=== PATIENT | female | born 1955 | race Caucasian/White ===

== ENCOUNTER 2016-11-18 23:09 | Observation (INO) | payer OTHER ==
--- NOTE | 2016-11-18 23:22 | EDPHY ---
H & P Stated Complaint: CP since 830pm, worse with breathing and exertion HPI/ROS: HPI CHIEF COMPLAINT: Chest pain, shortness of breath HISTORY OF PRESENT ILLNESS: This patient very pleasant 61-year-old female significant past medical history for epilepsy, presents to the emergency room with pain in her chest. She states that around 830 [address] was [address] and she suddenly developed pain in her chest that she describes a stricture. The pain is worse when she takes a deep breath in. Patient tells me that every time she takes deep breath in it hurts. She distally reports that she has a pressure sensation sitting on her chest. Denies nausea vomiting or diarrhea. Denies fever. Denies recent illness or cough. States her chest feels tight. Started abruptly at 8:30 p.m.. No history of cardiac or lung disease. She does report to me that the pain in her chest goes up to her neck. Bilaterally. Worse when she takes deep breath in. No trauma. Past Medical History: Epilepsy Past Surgical History: No recent surgery Social History: Denies daily use drugs alcohol tobacco products Family History: Family history consistent with coronary artery disease. ROS REVIEW OF SYSTEMS: A comprehensive 10 point review of systems is otherwise negative aside from elements mentioned in the history of present illness. Exam Constitutional appears well nontoxic, triage nursing summary reviewed, vital signs reviewed, awake/alert. Eyes normal conjunctivae and sclera, EOMI, PERRLA. HENT normal inspection, atraumatic, moist mucus membranes, no epistaxis, neck supple/ no meningismus, no raccoon eyes. Respiratory clear to auscultation bilaterally, normal breath sounds, no respiratory distress, no wheezing. Cardiovascular rate normal, regular rhythm, no murmur, no edema, distal pulses normal. Gastrointestinal soft, non-tender, no rebound, no guarding, normal bowel sounds, no distension, no pulsatile mass. Genitourinary no CVA tenderness. Musculoskeletal no midline vertebral tenderness, full range of motion, no calf swelling, no tenderness of extremities, no meningismus, good pulses, neurovascularly intact. Skin pink, warm, & dry, no rash, skin atraumatic. Neurologic awake, alert and oriented x 3, AAOx3, moves all 4 extremities equally, motor intact, sensory intact, CN II-XII intact, normal cerebellar, normal vision, normal speech. Psychiatric normal mood/affect. Heme/Lymph/Immune no lymphadenopathy. Differential diagnosis includes but is not limited to: ACS, atypical chest pain , pneumothorax, pneumonia, pulmonary embolism, aortic dissection, congestive heart failure, tumor, musculoskeletal pain, esophageal pain, GERD, peptic ulcer disease, pancreatitis Medical Decision Making: Plan for this patient full clinical research monitor, IV establishment, full-dose aspirin, nitroglycerin to see if this improves chest discomfort. EKG. Rule out acute coronary syndrome. Re-evaluation: EKG interpretation by me on record in [employer] system. Impression time of EKG 09/18/2028, sinus rhythm rate of 77, LVH present. Do not appreciate acute ischemia specifically no ST elevation. No old EKG to compare to. ED x-ray chest two view: Negative for acute cardiopulmonary disease. Image interpreted myself. I do not appreciate a pneumothorax subcutaneous air. 0127: Re-evaluation at this time. Patient resting comfortably. Chest x-ray, EKG, D-dimer, troponin negative. CT angiogram of the chest is still pending. CT scan of the angiogram chest. The results of the study are negative for pulmonary embolism, there is triple-vessel coronary artery disease. No aortic dissection. The study was read by Dr. Mcadams I viewed the images myself on the PACS system. 0154: I did speak with this patient and her about further evaluation of chest pain given that she has coronary artery disease on her CT scan and has typical anginal chest pain I will need admitted to the hospitalist for further evaluation. It is noted her EKG shows no acute ischemia. Negative troponin. Negative D-dimer. CT angiogram does not show PE but shows coronary artery disease. Patient agreeable for admission. Reason for patient admission is chest pain possible pleurisy. CT shows coronary artery disease. Patient has a positive family history. Patient's age. She is agreeable for admission updated her . Needs chest pain risk stratification. Need stress test echocardiogram. Here in the emergency room negative troponin, negative D-dimer, normal EKG. CT angiogram shows no PE. Does show coronary artery disease. No aortic dissection or aneurysm. Source: Patient - Personal History Current Tetanus/Diphtheria Vaccine: Unsure Current Tetanus Diphtheria and Acellular Pertussis (TDAP): Unsure - Medical/Surgical History Hx Asthma: No Hx Chronic Respiratory Disease: No Hx Diabetes: No Hx Cardiac Disease: No Hx Renal Disease: No Hx Cirrhosis: No Hx Alcoholism: No Hx HIV/AIDS: No Hx Splenectomy or Spleen Trauma: No Other PMH: HTN, epilepsy, high cholesterol - Social History Smoking Status: Never smoked Constitutional: Initial Vital Signs Temperature (C) 36.9 C 11/18/16 23:10 Heart Rate 80 11/18/16 23:10 Respiratory Rate 18 11/18/16 23:10 Blood Pressure 177/95 H 11/18/16 23:10 O2 Sat (%) 93 11/18/16 23:10 O2 Delivery Mode Nasal Cannula O2 (L/minute) 2 Allergies/Adverse Reactions: No Known Allergies Allergy (Unverified 11/18/16 23:13) Home Medications: Medication Instructions Recorded Atorvastatin Calcium [Lipitor 40 40 mg PO HS 11/19/16 mg (*)] Escitalopram Oxalate [Lexapro] 20 mg PO DAILY 11/19/16 lamoTRIgine [LamICTAL 100 MG (*)] 200 mg PO HS 11/19/16 lamoTRIgine [LamICTAL 100 MG (*)] 300 mg PO DAILY 11/19/16 levETIRAcetam [Keppra 500 mg (*)] 1,000 mg PO HS 11/19/16 levETIRAcetam [Keppra 500 mg (*)] 1,500 mg PO DAILY 11/19/16 Medical Decision Making - Data Points Laboratory Results: Laboratory Results 11/18/16 23:30 11/18/16 23:30 Medications Given: Discontinued Medications Aspirin (Aspirin) 324 mg PO EDNOW ONE Stop: 11/18/16 23:32 Last Admin: 11/19/16 00:17 Dose: Not Given Aspirin (Aspirin) 325 mg PO DAILY [facility] Stop: 05/18/17 08:59 Last Admin: 11/19/16 09:35 Dose: Not Given Atorvastatin Calcium (Lipitor) 40 mg PO DAILY [facility] Stop: 05/18/17 08:59 Last Admin: 11/19/16 09:41 Dose: Not Given Escitalopram Oxalate (Lexapro) 20 mg PO DAILY [facility] Stop: 05/18/17 08:59 Last Admin: 11/19/16 09:41 Dose: Not Given Sodium Chloride (Ns) 1,000 mls @ 0 mls/hr IV ONCE ONE PRN Reason: Wide Open Stop: 11/18/16 23:32 Last Admin: 11/19/16 00:00 Dose: 1,000 mls Sodium Chloride (Ns) 1,000 mls @ 0 mls/hr IV ONCE ONE PRN Reason: Wide Open Stop: 11/19/16 01:27 Last Admin: 11/19/16 01:56 Dose: 1,000 mls Levetiracetam (Keppra) 1,500 mg PO DAILY EDUAR Stop: 05/18/17 08:59 Last Admin: 11/19/16 09:41 Dose: Not Given Morphine Sulfate (Morphine) 4 mg IVP EDNOW ONE Stop: 11/19/16 00:38 Last Admin: 11/19/16 00:45 Dose: 4 mg Nitroglycerin (Nitrostat) 0.4 mg SL EDNOW PRN PRN Reason: Chest Pain Stop: 11/21/16 00:18 Last Admin: 11/19/16 00:02 Dose: 0.4 mg Nitroglycerin (Nitrostat) 0.4 mg SL EDNOW ONE Stop: 11/19/16 07:31 Last Admin: 11/19/16 08:16 Dose: Not Given Departure - Departure Disposition: [facility] Inpatient Acute Clinical Impression: Chest pain Qualifiers: Chest pain type: unspecified Qualified Code(s): R07.9 - Chest pain, unspecified Condition: Fair
[2016-11-18] MEDS ORDERED: ASPIRIN 81 MG CHEWABLE TAB PO ONE (23:31)
[2016-11-18] MEDS ORDERED: NS 1,000 ML IV ONE (23:31)
[2016-11-18] MEDS ORDERED: NITROGLYCERIN 0.4 MG BTL SL PRN (23:31)
--- NOTE | 2016-11-18 23:31 | CPEKG ---
Heart Rate: 77 RR Interval: 779 P-R Interval: 180 QRSD Interval: 94 QT Interval: 388 QTC Interval: 440 P [place]: 51 QRS [place]: 36 T Wave [place]: 90 EKG Severity - ABNORMAL ECG - EKG Impression: SINUS RHYTHM EKG Impression: PROBABLE LEFT ATRIAL ABNORMALITY EKG Impression: PROBABLE LEFT VENTRICULAR HYPERTROPHY Electronically Signed By: Lennie Law 23-Nov-2016 20:35:54
[2016-11-18 23:42] LABS: % IMMATURE GRANULYOCYTES 0.3 % (0.0-1.1); ABSOLUTE IMMATURE GRANULOCYTES 0.05 10^3/uL (0.00-0.10); ADD DIFF? NO; ADD MORPH? NO; ADD SCAN? NO; ATYPICAL LYMPHOCYTE FLAG 0 (0-99); FRAGMENT RBC FLAG 0 (0-99); HEMOGLOBIN 14.4 g/dL (12.6-16.3); LEFT SHIFT FLG 0 (0-99); LIPEMIA HEMOLYSIS FLAG 80 (0-99); MEAN CELL HEMOGLOBIN 32.1 pg (27.9-34.1); MEAN CELL HEMOGLOBIN CONCENTR. 33.5 g/dL (32.4-36.7); MEAN PLATELET VOLUME 9.2 fL (8.7-11.7); PLATELET CLUMPS FLAG 0 (0-99); PLATELET COUNT 260 10^3/uL (150-400); RED BLOOD CELL COUNT 4.48 10^6/uL (4.18-5.33); RED CELL DISTRIBUTION WIDTH 12.3 % (11.5-15.2)
[2016-11-18 23:52] LABS: ALANINE AMINOTRANSFERASE 35 IU/L (9-52); ALBUMIN 4.7 g/dL (3.5-5.0); ALKALINE PHOSPHATASE 88 IU/L (38-126); ANION GAP 8 mEq/L (8-16); ASPARTATE AMINOTRANSFERASE 31 IU/L (14-46); BILIRUBIN,TOTAL 0.5 mg/dL (0.1-1.4); BILIRUBIN-CONJUGATED 0.3 mg/dL (0.0-0.5); BILIRUBIN-UNCONJUGATED 0.2 mg/dL (0.0-1.1); CARBON DIOXIDE 28 mEq/l (22-31); CHLORIDE 103 mEq/L (97-110); CREATININE 0.9 mg/dL (0.6-1.0); GLOMERULAR FILTRATION RATE > 60; GLUCOSE 130 mg/dL (70-100); MAGNESIUM 1.6 mg/dL (1.6-2.3); POTASSIUM 4.1 mEq/L (3.5-5.2); SODIUM 139 mEq/L (134-144); TOTAL PROTEIN 7.9 g/dL (6.3-8.2)
[2016-11-18 23:53] LABS: APTT 27.8 SEC (23.0-38.0); INR 0.91 (0.83-1.16); PROTIME(PATIENT) 12.1 SEC (12.0-15.0)
[2016-11-19 00:04] LABS: CREATINE KINASE-MB FRACTION 2.39 ng/mL (0-3.19); TROPONIN I < 0.012 ng/mL (0-0.034)
[2016-11-19] MEDS ORDERED: NITROGLYCERIN 0.4 MG BTL SL PRN ×2 (00:17→01:27)
[2016-11-19] MEDS ORDERED: IOPAMIDOL (ISOVUE 370) 100 ML BTL IV ONE (00:57)
[2016-11-19] MEDS ORDERED: NS 1,000 ML IV ONE (01:26)
[2016-11-19] MEDS ORDERED: fentaNYL 100 MCG/2 ML INJ IVP ONE (01:55)
[2016-11-19] MEDS ORDERED: fentaNYL 100 MCG/2 ML INJ ONE (02:14)
[2016-11-19] MEDS ORDERED: ONDANSETRON DISINTEGRATING 4 MG TAB PO PRN (07:24)
[2016-11-19] MEDS ORDERED: ONDANSETRON 4 MG/2 ML VIAL IVP PRN (07:24)
[2016-11-19] MEDS ORDERED: ACETAMINOPHEN 325 MG TAB PO PRN (07:26)
[2016-11-19] MEDS ORDERED: NITROGLYCERIN 0.4 MG BTL SL ONE (07:30)
--- NOTE | 2016-11-19 08:05 | PDGENHP ---
History and Physical - Chief Complaint chest pain - History of Present Illness Patient is a 61-year-old female with history of epilepsy and depression who presents to the ED with complaint of chest pain. Patient is visiting [place] from [place], has been in [place] since 11/17. [facility], left around 8:00 p.m. and shortly after arriving back to her hotel room, she began experiencing chest tightness. She describes it as band-like tightness across her mid chest, constant, worse with inspiration and impeding her ability for deep inspiration. Tightness is associated with shortness of breath, mostly due to inability to take a deep inspiration due to pain. There is no associated dizziness, lightheadedness, palpitations, headache. She has never experienced this type of pain before. She denies any recent fever, chills , headache, cough, congestion or obvious sick contacts. She has never had a stress test or cardiac evaluation previously. On arrival to the ED patient was afebrile hemodynamically stable. Labs revealed normal CBC, BMP and negative troponin and d-dimer. EKG showed normal sinus rhythm without ischemic changes. CXR was unremarkable and CT angio of chest was also obtained and unremarkable. She was given full dose aspirin and admitted to the hospitalist service for furthr management. History Information - Allergies/Home Medication List Allergies/Adverse Reactions: No Known Allergies Allergy (Unverified 11/18/16 23:13) Home Medications: Atorvastatin Calcium [Lipitor 40 mg (*)] 40 mg PO HS 11/19/16 [Last Taken Unknown] Escitalopram Oxalate [Lexapro] 20 mg PO DAILY 11/19/16 [Last Taken Unknown] lamoTRIgine [LamICTAL 100 MG (*)] 200 mg PO HS 11/19/16 [Last Taken Unknown] lamoTRIgine [LamICTAL 100 MG (*)] 300 mg PO DAILY 11/19/16 [Last Taken Unknown] levETIRAcetam [Keppra 500 mg (*)] 1,000 mg PO HS 11/19/16 [Last Taken Unknown] levETIRAcetam [Keppra 500 mg (*)] 1,500 mg PO DAILY 11/19/16 [Last Taken ] I have personally reviewed and updated: family history, medical history, social history, surgical history - Past Medical History Additional medical history: Epilepsy, complex partial with secondary generalization; no seizures since menopause (> 5 years). Depression, well controlled - Surgical History Additional surgical history: Neurosurgical procedure for epilepsy - Family History Additional family history: CAD in most relatives. - Social History Smoking Status: Never smoked Alcohol Use: None Drug Use: None Additional social history: Lives in [place] with her ; denies tobacco use; drinks 2 cocktails nightly; denies drug use. Physical Exam Physical Exam: Gen: NAD HEENT: mmm Neck: supple CV: RRR, systolic murmur; no chest wall tenderness Resp: CTA b/l , no wheezing or rhonchi Abd: +BS, soft, nontender, nondistended Ext: no LE edema; DP pulses 2+ B/L Neuro: AO x 3, answers question appropriately; 5/5 strength, light touch sensation intact Temp Pulse Resp BP Pulse Ox 36.9 C 74 16 165/100 H 97 11/18/16 23:10 11/19/16 00:00 11/19/16 00:00 11/19/16 00:00 11/19/16 00:00 Lab Data & Imaging Review 11/18/16 23:30 11/20/16 03:55 WBC 14.46 10^3/uL (3.80-9.50) H 11/18/16 23:30 RBC 4.48 10^6/uL (4.18-5.33) 11/18/16 23:30 Hgb 14.4 g/dL (12.6-16.3) 11/18/16 23:30 Hct 43.0 % (38.0-47.0) 11/18/16 23:30 MCV 96.0 fL (81.5-99.8) 11/18/16 23:30 MCH 32.1 pg (27.9-34.1) 11/18/16 23:30 MCHC 33.5 g/dL (32.4-36.7) 11/18/16 23:30 RDW 12.3 % (11.5-15.2) 11/18/16 23:30 Plt Count 260 10^3/uL (150-400) 11/18/16 23:30 MPV 9.2 fL (8.7-11.7) 11/18/16 23:30 Neut % (Auto) 77.0 % (39.3-74.2) H 11/18/16 23:30 Lymph % (Auto) 14.2 % (15.0-45.0) L 11/18/16 23:30 [place] % (Auto) 5.7 % (4.5-13.0) 11/18/16 23:30 Eos % (Auto) 2.3 % (0.6-7.6) 11/18/16 23:30 Baso % (Auto) 0.5 % (0.3-1.7) 11/18/16 23:30 Nucleat RBC Rel Count 0.0 % (0.0-0.2) 11/18/16 23:30 Absolute Neuts (auto) 11.13 10^3/uL (1.70-6.50) H 11/18/16 23:30 Absolute Lymphs (auto) 2.05 10^3/uL (1.00-3.00) 11/18/16 23:30 Absolute Monos (auto) 0.83 10^3/uL (0.30-0.80) H 11/18/16 23:30 Absolute Eos (auto) 0.33 10^3/uL (0.03-0.40) 11/18/16 23:30 Absolute Basos (auto) 0.07 10^3/uL (0.02-0.10) 11/18/16 23:30 Absolute Nucleated RBC 0.00 10^3/uL (0-0.01) 11/18/16 23:30 Immature Gran % 0.3 % (0.0-1.1) 11/18/16 23:30 Immature Gran # 0.05 10^3/uL (0.00-0.10) 11/18/16 23:30 PT 12.1 SEC (12.0-15.0) 11/18/16 23:30 INR 0.91 (0.83-1.16) 11/18/16 23:30 APTT 27.8 SEC (23.0-38.0) 11/18/16 23:30 D-Dimer < 0.27 ug/mLFEU (0.00-0.50) 11/18/16 23:30 Sodium 139 mEq/L (134-144) 11/18/16 23:30 Potassium 4.1 mEq/L (3.5-5.2) 11/18/16 23:30 Chloride 103 mEq/L (97-110) 11/18/16 23:30 Carbon Dioxide 28 mEq/l (22-31) 11/18/16 23:30 Anion Gap 8 mEq/L (8-16) 11/18/16 23:30 BUN 23 mg/dL (7-23) 11/18/16 23:30 Creatinine 0.9 mg/dL (0.6-1.0) 11/18/16 23:30 Estimated GFR > 60 11/18/16:30 Glucose 130 mg/dL (70-100) H 11/18/16:30 Calcium 10.0 mg/dL (8.5-10.4) 11/18/16: Magnesium 1.6 mg/dL (1.6-2.3) 11/18/16 23:30 Total Bilirubin 0.5 mg/dL (0.1-1.4) 11/18/16: Conjugated Bilirubin 0.3 mg/dL (0.0-0.5) 11/18/16: Unconjugated Bilirubin 0.2 mg/dL (0.0-1.1) 11/18/16:30 AST 31 IU/L (14-46) 11/18/16:30 ALT 35 IU/L (9-52) 11/18/16 23:30 Alkaline Phosphatase 88 IU/L (38-126) 11/18/16 23:30 Creatine Kinase 96 IU/L (0-156) 11/18/16: CK-MB (CK-2) Fraction 2.39 ng/mL (0-3.19) 11/18/16:30 Troponin I < 0.012 ng/mL (0-0.034) 11/18/16: NT-Pro-B Natriuret Pep 43 pg/mL (0-125) 11/18/16: Total Protein 7.9 g/dL (6.3-8.2) 11/18/16 23:30 Albumin 4.7 g/dL (3.5-5.0) 11/18/16: Lipase 213.0 IU/L (23-300) 11/18/16 23:30 Visualized and Interpreted Chest x-ray results: Yes Chest X-Ray results: no infiltrate Interpretation: CT angio chest: no pe, coronary calcification Visualized and Interpreted EKG results: Yes EKG Interpretation: Positive for: normal sinsus rhythm EKG additional interpertation: no st/t wave changes Assessment & Plan Assessment: Patient is a 61-year-old female with history epilepsy, depression presents to the ED with complaint of chest pain. ED evaluation reveals a negative initial troponin, normal initial EKG, CT angio negative for acute PE, although does show evidence of coronary calcification. Plan: # chest pain Patients description of symptoms sound more consistent with pleurisy or pleuritic type chest pain. Initial EKG is without ischemic changes and troponin is negative. D-dimer also negative. However, given her positive family history and obvious coronary calcification seem on CT angio of her chest, further risk stratification is warranted, once ACS has been ruled out. Will follow serial troponins, monitor EKGs, if remain negative, will check NM lexiscan stress test. Will also check lipid panel, give aspirin and statin. # epilepsy Has been seizure free since the onset of her menopause about 5 years ago. However, continues with keppra and lamictal anti-epileptic therapy. Will continue these while inpatient. # depression Stable, continue home meds. # dipso: admit to observation for chest pain work up # gen: NPO DVT ppx: observation, lovenox if inpatient for > 24 hours Full code
[2016-11-19] MEDS ORDERED: levETIRAcetam 500 MG TAB PO SCH ×7 (09:00→21:00)
[2016-11-19] MEDS ORDERED: ESCITALOPRAM OXALATE 10 MG TAB PO SCH (09:00)
[2016-11-19] MEDS ORDERED: ASPIRIN 325 MG TAB PO SCH (09:00)
[2016-11-19] MEDS ORDERED: ATORVASTATIN CALCIUM 40 MG TAB PO SCH ×2 (09:00→21:00)
[2016-11-19 09:11] LABS: ANION GAP 7 mEq/L (8-16); CARBON DIOXIDE 25 mEq/l (22-31); CHLORIDE 105 mEq/L (97-110); CHOLESTEROL 167 mg/dL (140-220); CHOLESTEROL/HDL RATIO 1.96 RATIO (1.00-4.44); CREATININE 0.6 mg/dL (0.6-1.0); GLOMERULAR FILTRATION RATE > 60; GLUCOSE 118 mg/dL (70-100); HIGH DENSITY LIPOPROTEIN 85 mg/dL (40-85); LDL/HDL RATIO 0.87 RATIO (1.00-3.22); LOW DENSITY LIPOPROTEIN 74 mg/dL (80-100); MAGNESIUM 1.6 mg/dL (1.6-2.3); NON-HIGH DENSITY LIPOPROTEIN 82 mg/dL (90-129); POTASSIUM 4.7 mEq/L (3.5-5.2); SODIUM 137 mEq/L (134-144); TRIGLYCERIDE 44 mg/dL (35-135); VERY LOW DENSITY LIPOPROTEINS 8 mg/dL (8-25)
[2016-11-19 09:15] LABS: CREATINE KINASE-MB FRACTION 1.43 ng/mL (0-3.19)
[2016-11-19] MEDS: ASPIRIN EC 81 MG TAB PO SCH (09:25)
[2016-11-19] MEDS ORDERED: REGADENOSON 0.4 MG/5 ML SYR IVP ONE (10:03)
[2016-11-19] MEDS ORDERED: DIAZEPAM 10 MG/2 ML SYR ONE (10:15)
[2016-11-19] MEDS ORDERED: DIAZEPAM 10 MG/2 ML SYR IVP PRN (10:47)
--- NOTE | 2016-11-19 11:07 | CPR ---
[f rep st] NONINVASIVE CARDIAC PROCEDURE REPORT PROCEDURE PERFORMED: Lexiscan Cardiolite Stress Test I supervised the Lexiscan Cardiolite stress test. Results of the nuclear imaging will be dictated b y radiologist. PROCEDURE: Written informed consent was obtained prior to the procedure. The patient has a history of partial complex seizures and there is a label warning with Lexiscan that it can make seizures wo rse. I did talk with the patient and and offered her exercise Cardiolite stress test instea d, however understanding the risks, she would prefer a Lexiscan Cardiolite stress test because she d oes not think she will be able to exercise. We did have diazepam 5 mg IV available in the room in case she had seizures. Lexiscan was administered per protocol and Cardiolite injection was given. Heart rate increased fro m 67 beats per minute to 100 beats per minute with Lexiscan injection, and the patient had nausea. There was no worsening of chest pain. She did report shortness of breath which is usual with Lexisc an and it resolved after about 1 minute. When the heart rate increased from 67 beats per minute at baseline to 100 beats per minute during Le xiscan infusion, the patient developed a rate related left bundle branch block. 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 There were no complications. /[id number]/MODL
[2016-11-19] MEDS: lamoTRIgine 100 MG TAB PO SCH (12:42)
--- NOTE | 2016-11-19 13:42 | CPEKG ---
Heart Rate: 70 RR Interval: 857 P-R Interval: 172 QRSD Interval: 92 QT Interval: 396 QTC Interval: 428 P [place]: 40 QRS [place]: 33 T Wave [place]: 64 EKG Severity - ABNORMAL ECG - EKG Impression: SINUS RHYTHM EKG Impression: CONSIDER LEFT VENTRICULAR HYPERTROPHY Electronically Signed By: Kendra Bee 19-Nov-2016 19:30:37
--- NOTE | 2016-11-19 15:35 | ECHO ---
[id number] + + [phone] : : [place] [address] : : [phone] + + Adult Echocardiographic Report + -----+ :Name: HESHAM DUQUE KStudy Date: 11/19/2016 02:32 PM BP: 154/87 mmHg : : Hospital Admission Number: [id number] Location : 207: :: 1955 Gender: Female Height: 69 in : :Age: 61 yrs Race: WH Weight: 168 lb : :Reason For Study: ?pericarditis : : BSA: 1.9 meters2 : :History: chest pain : + -----+ MMode/2D Measurements \T\ Calculations IVSd: 0.95 cm RVDd: 3.5 cm FS: 28.6 % Ao root diam: LVPWd: 0.91 cm LVIDd: 3.6 cm EDV(Teich): 2.6 cm LVIDs: 2.6 cm 55.7 ml ESV(Teich): 24.5 ml EF(Teich): 56.1 % LVLd ap4: 8.2 cm SV(MOD-sp4): EDV(MOD-sp4): 86.0 ml 123.0 ml LVLs ap4: 6.6 cm ESV(MOD-sp4): 37.0 ml EF(MOD-sp4): 69.9 % Normal Measurement Values: + + :LVIDd (3.5-5.7cm) IVSd (0.6-1.1cm) LVPWd (0.6-1.1cm) Aortic Root (2.0-3.7cm)Left Atrium (1.5-4.0cm): :LV Vol(d) (76-115ml) LV Vol(s) (29-48ml) Ejec Fraction (50-65%)PV Cristofer (0.6- 1.2m/s) TV Cristofer (0.4-1.0m/s) : :MV E Cristofer (0.8-1.0m/s)MV A Cristofer (0.3-1.0m/s)LVOT Cristofer (0.7-1.2m/s) Asc Ao Cristofer ( 0.9-1.8m/s) : + + Doppler Measurements \T\ Calculations MV E max cristofer: Ao V2 max: LV V1 max: PA V2 max: 105.9 cm/sec 173.7 cm/sec 142.0 cm/sec 128.1 cm/sec MV A max cristofer: Ao max PG: LV V1 max PG: PA max P.4 cm/sec 12.1 mmHg 8.1 mmHg 6.6 mmHg MV E/A: 1.1 MV dec time: 0.30 sec Left Ventricle The left ventricle is normal in size and function. There is normal left ventricular wall thickness. Ejection Fraction = 65-70%. No regional wall motion abnormalities noted. Right Ventricle The right ventricle is normal in size and function. Atria The left atrial size is normal. Right atrial size is normal. Mitral Valve The mitral valve is normal in structure and function. There is no mitral valve stenosis. There is trace to mild mitral regurgitation. Tricuspid Valve The tricuspid valve is normal in structure and function. There is no tricuspid stenosis. No tricuspid regurgitation. Aortic Valve The aortic valve is normal in structure and function. There is no aortic stenosis. There is no aortic insufficiency. Pulmonic Valve The pulmonic valve is normal in structure and function. There is no pulmonic valvular regurgitation. Great Vessels The aortic root is normal size. Pericardium/Pleural trivial pericardial effusion. Conclusion A two-dimensional transthoracic echocardiogram with M-mode and Doppler was performed. The left ventricle is normal in size and function. Ejection Fraction = 65-70%. Normal appearing valvular structures. There is trace to mild mitral regurgitation. Trivial pericardial effusion. Final Reading Physician: Italo Estrella signed on 11/19/2016 03:34 PM Ordering Physician: Evelina Fletcher Performed By: Cinthia Wolfe
--- NOTE | 2016-11-19 16:52 | HOSPPROG ---
Hospitalist Progress Note Assessment/Plan: Patient is a 61-year-old female with history epilepsy, depression presents to the ED with complaint of chest pain. Plan: # chest pain--pleuritic in nature though cta w/o evidence of pe/pna etc. ECG negative however patient has stress portion of stress test with development of LBBB consistently with increased hr and stress portion of MPI equivocal--rest portion in am. Somewhat positional and has murmur on exam so will get echo to eval for pericardial effusion and further characterization of murmur. Other potential etiology would be GI source given hiatal hernia noted on ct and ? if this could be related to gerd or esophageal spasm. Will start PPI, GI cocktail prn. # epilepsy Has been seizure free since the onset of her menopause about 5 years ago. However, continues with keppra and lamictal anti-epileptic therapy. Will continue these while inpatient. worried that her lamictal needs to be "brand name" only, and has only enough medications to last through tomorrow. Reviewed options for getting this for her. # depression Stable, continue home meds. # dipso: IP, will need > 48 hours stay for eval/mgmt of above # gen: DVT ppx: lmwh Full code Reviewed care plan with cardiology and radiology. > 60 minutes spent in direct face to face counseling of patient and family from approximately 145-245pm. Many questions regarding f/u care plan and differential diagnosis as well as whether or not travel would be appropriate were answered. Objective: Vital Signs Temp Pulse Resp BP Pulse Ox 37.2 C 66 16 149/83 H 98 11/19/16 16:21 11/19/16 16:21 11/19/16 16:21 11/19/16 16:21 11/19/16 16:21 Laboratory Results 11/19/16 07:17 11/18/16 11/19/16 11/20/16 05:59 05:59 05:59 Intake Total 250 Balance 250 PT 12.1 SEC (12.0-15.0) 11/18/16 23:30 INR 0.91 (0.83-1.16) 11/18/16 23:30 ICD10 Worksheet Patient Problems: Problems Problem Status Onset Chest pain Acute
[2016-11-19] MEDS ORDERED: lamoTRIgine 100 MG TAB PO SCH (21:00)
[2016-11-20 05:08] LABS: ANION GAP 7 mEq/L (8-16); CALCIUM 9.3 mg/dL (8.5-10.4); CARBON DIOXIDE 27 mEq/l (22-31); CHLORIDE 106 mEq/L (97-110); CREATININE 0.7 mg/dL (0.6-1.0); GLOMERULAR FILTRATION RATE > 60; GLUCOSE 101 mg/dL (70-100); MAGNESIUM 1.9 mg/dL (1.6-2.3); POTASSIUM 4.7 mEq/L (3.5-5.2); SODIUM 140 mEq/L (134-144)
[2016-11-20 05:20] LABS: CREATINE KINASE-MB FRACTION 0.73 ng/mL (0-3.19); TROPONIN I < 0.012 ng/mL (0-0.034)
[2016-11-20] MEDS ORDERED: levETIRAcetam 500 MG TAB PO SCH (09:00)
[2016-11-20] MEDS ORDERED: NON-FORMULARY NEW DRUG (Escitalopram Oxalate [Lexapro] 20 MG) PO SCH (09:00)
[2016-11-20] MEDS ORDERED: ESCITALOPRAM OXALATE 10 MG TAB PO SCH (09:00)
[2016-11-20] MEDS: lamoTRIgine 100 MG TAB PO SCH (09:43)
[2016-11-20] MEDS: ASPIRIN EC 81 MG TAB PO SCH (09:50)
[2016-11-20 13:15] VITALS: BP 129/69; PULSE 63; RESP 17; TEMP 98.8; O2SAT 93
--- NOTE | 2016-11-20 14:59 | PDDCSUM ---
Discharge Summary Discharge Summary: Dates of service 11/19-11/20/16 Consultations: none Procedures performed: nuc stress test, echocardiogram, chest CTA Hospital course by problem: # chest pain-continued overnight but much improved--truly pleuritic in nature. W /u including CTA, echo, nuc stress test all unremarkable. No e/o PE, PNA, ischemia, significant valvular disease etc. At this point, seems to be pleurisy but without underlying etiology clear. Reviewed at length with patient and her that the life threatening issues have been essentially ruled out and that given continued improvement, we can likely this to resolve, but that if it does not, further w/u including for other issues of pleurisy such as autoimmune conditions etc may then be indicated. They feel comfortable with that plan, will take prn advil for now. # epilepsy Has been seizure free since the onset of her menopause about 5 years ago. However, continues with keppra and lamictal anti-epileptic therapy and these were not changed # depression Stable, continue home meds. # dipso: dc home, patient to travel back home to [place] likely [place], will f/u with pcp there > 45 min spent in dc of patient, more than half in face to face counseling of patient and her regarding f/u care plan, return precuations and explanation of test results
== END 2016-11-20 15:31 | disposition home or self-care (01) ==
LOC: F2W 11-19 02:35
PROVIDERS: ADMIT Internal Medicine; ATTEND Internal Medicine
PROC: 4A12XM4 Monitoring of Cardiac Stress, External Approach (ICD-10-PCS; principal; 2016-11-19)
DX: R07.9 Chest pain, unspecified (principal); R09.1 Pleurisy; G40.909 Epilepsy, unspecified, not intractable, without status epilepticus; F32.9 Major depressive disorder, single episode, unspecified; Z82.49 Family history of ischemic heart disease and other diseases of the circulatory system
CPT/HCPCS: 71010; 71275; 78452; 93005; 93017; 93306; A9500; G0378; 96374; J2785; J3010; Q9967